=== PATIENT | female | born 1965 | race Caucasian/White ===

== ENCOUNTER 2017-03-22 06:22 | Emergency (ER) | payer OTHER ==
[2017-03-22] MEDS: SODIUM CHLORIDE 0.9% 500 ML IV SCH ×3 (07:00→07:55)
[2017-03-22 07:02] LABS: Basophils % (A) 0 %; CH 31.4; CHCM 33.8; Eosinophils # (A) 0.1 k/uL (0-0.7); Eosinophils % (A) 1 %; HCT 40.2 % (34.0-46.0); HDW 2.07; HGB 13.2 gm/dL (11.4-16.0); Luc # (Auto) 0.27; Luc % (Auto) 2; Lymphocytes # (A) 1.6 k/uL (1.0-4.8); Lymphocytes % (A) 11 %; MCH 30.7 pg (25.0-35.0); MCHC 32.9 g/dL (31.0-37.0); MCV 93.1 fL (80.0-100.0); Mean Platelet Volume 8.7; Monocytes # (A) 0.9 k/uL (0-1.0); Monocytes % (A) 6 %; Neutrophils # (A) 12.2 k/uL (1.3-7.7); Neutrophils % (A) 81 %; RBC 4.32 m/uL (3.80-5.40); RDW 12.9 % (11.5-15.5); WBC 15.1 k/uL (3.8-10.6); WBC (Perox) 15.32
[2017-03-22 07:11] LABS: ALT 29 U/L (9-52); AST 28 U/L (14-36); Alkaline Phosphatase 81 U/L (38-126); Anion Gap 10 mmol/L; Blood Urea Nitrogen 16 mg/dL (7-17); Carbon Dioxide 24 mmol/L (22-30); Chloride 105 mmol/L (98-107); Glucose 109 mg/dL (74-99); Non-African American GFR(MDRD) >60 (>60 ml/min/1.73 sqM); Sodium 139 mmol/L (137-145); Total Bilirubin 0.9 mg/dL (0.2-1.3); Total Protein 6.5 g/dL (6.3-8.2)
[2017-03-22 07:16] LABS: Partial Thromboplastin Time 23.7 sec (22.0-30.0); Prothrombin Time 10.2 sec (9.0-12.0)
[2017-03-22] MEDS ORDERED: ACETAMINOPHEN IV (For NPO) 1,000 MG in EMPTY BAG 1 BAG IVPB STA (07:35)
[2017-03-22] MEDS ORDERED: MORPHINE SULFATE 2 MG/ML SYRINGE IVP ONE (07:37)
[2017-03-22] MEDS ORDERED: ONDANSETRON 4 MG/2 ML VIAL IVP STA (07:37)
--- NOTE | 2017-03-22 07:40 | ED ---
General Adult HPI - General Chief complaint: Neck Pain/Injury Stated complaint: Dehydration Time Seen by Provider: 03/22/17 06:56 Source: patient Mode of arrival: ambulatory Limitations: no limitations - History of Present Illness Initial comments: This is a 51-year-old female who presents here department for a sore throat and difficulty swallowing. She recently had neck surgery performed on March 20. She states that she was intubated at that time. She states that since then she' s been having a lot of pain in her throat and she's been having difficulty with swallowing. She states that every time she swallows she gags. She denies any nausea or vomiting however when she does take her pain medications on an empty stomach and does make her nauseated. She denies any fevers or chills at home however was febrile in triage. She denies any dysuria or hematuria. No cough or shortness of breath. No abdominal pain. She denies any other complaints. - Related Data Previous Rx's Medication Instructions Recorded Butalbit/Acetamin/Caff/Codeine 1 - 2 cap PO Q4HR PRN #15 cap 09/23/15 [Fioricet-Cod 52-362-16-30 Cap] Ondansetron Odt [Zofran Odt] 4 mg PO Q8HR PRN #12 tab 03/22/17 methylPREDNISolone Dose Pack 4 mg PO DIRECTED #21 package 03/22/17 [Medrol Dose Pack] Allergies Allergy/AdvReac Type Severity Reaction Status Date / Time No Known Allergies Allergy Verified 03/22/17 06:31 Review of Systems ROS Statement: Those systems with pertinent positive or pertinent negative responses have been documented in the HPI. ROS Other: All systems not noted in ROS Statement are negative. Past Medical History Additional Past Medical History / Comment(s): Heriditary hemorrhagic telangiectasia History of Any Multi-Drug Resistant Organisms: None Reported Past Surgical History: Section, Orthopedic Surgery, Tonsillectomy Additional Past Surgical History / Comment(s): c-sect x2, man-made disk inserted 03/20/2017 Past Psychological History: No Psychological Hx Reported Smoking Status: Current every day smoker Past Alcohol Use History: None Reported Past Drug Use History: None Reported General Exam - General Exam Comments Initial Comments: Constitutional: Awake alert Appears comfortable Head: Normocephalic atraumatic HEENT: Oropharynx is not erythematous or edematous. Eyes: no conjunctival injection No scleral icterus EOMI Neck: No JVD Supple, there is a cervical collar in place, dressings up. We clean dry and intact Heart: Regular rate rhythm normal S1-S2 no murmurs Lungs: Clear to auscultation bilaterally No wheezing No rales Abdomen: Soft nondistended nontender Extremities: Non edematous DP pulses intact Radial pulses intact Neuro: A&Ox3 No focal neurologic deficits Psych: Appropriate mood and affect Limitations: no limitations Course Vital Signs 03/22/17 03/22/17 03/22/17 06:27 06:56 07:58 Temperature 100.7 F H Pulse Rate 81 73 69 Respiratory 18 18 18 Rate Blood Pressure 113/57 117/61 128/74 O2 Sat by Pulse 95 96 99 Oximetry EKG Findings - EKG Comments: EKG Findings:: EKG is showing normal sinus rhythm with a rate of 79. No abnormal ST segment changes or T-wave inversions. QTC is 412. Other intervals are normal. No ectopy. Medical Decision Making - Medical Decision Making This is a 51-year-old female who presents emergency department for sore throat and difficult swallowing. She had a neck procedure performed a couple of days ago. She was febrile on arrival with a white count of 15.1. X-ray of the soft tissues did see some prevertebral swelling. She did not have any stridor on exam the rest her distress. She was given some Zofran and morphine with great relief in her symptoms. She was also hydrated. I spoke with Dr. Liang who is her neurosurgeon who did not advise getting a computed tomography scan for further evaluation. He felt that the findings were postoperative. He stated that if she does not have any stridor he would not do any further testing. He did state to give her a Medrol Dosepak. She is going to follow-up with him in 3 days. He did advise that if she had any worsening symptoms that she needed to go to [facility] where they can do further evaluation for her. Patient was updated on the plan per Dr. Liang and agrees. Will be discharged home. - Lab Data Result diagrams: 03/22/17 06:45 03/22/17 06:45 Lab Results 07/30/17 07/30/17 07/30/17 Range/Units 06:45 06:45 06:45 WBC 15.1 H (3.8-10.6) k/uL RBC 4.32 (3.80-5.40) m/uL Hgb 13.2 (11.4-16.0) gm/dL Hct 40.2 (34.0-46.0) % MCV 93.1 (80.0-100.0) fL MCH 30.7 (25.0-35.0) pg MCHC 32.9 (31.0-37.0) g/dL RDW 12.9 (11.5-15.5) % Plt Count 226 (150-450) k/uL Neutrophils % 81 % Lymphocytes % 11 % Monocytes % 6 % Eosinophils % 1 % Basophils % 0 % Neutrophils # 12.2 H (1.3-7.7) k/uL Lymphocytes # 1.6 (1.0-4.8) k/uL Monocytes # 0.9 (0-1.0) k/uL Eosinophils # 0.1 (0-0.7) k/uL Basophils # 0.0 (0-0.2) k/uL PT (9.0-12.0) sec INR (<1.2) APTT (22.0-30.0) sec Sodium 139 (137-145) mmol/L Potassium 4.0 (3.5-5.1) mmol/L Chloride 105 (98-107) mmol/L Carbon Dioxide 24 (22-30) mmol/L Anion Gap 10 mmol/L BUN 16 (7-17) mg/dL Creatinine 0.60 (0.52-1.04) mg/dL Est GFR (MDRD) Af Amer >60 (>60 ml/min/1.73 sqM) Est GFR (MDRD) Non-Af >60 (>60 ml/min/1.73 sqM) Glucose 109 H (74-99) mg/dL Plasma Lactic Acid Yevgeniy 0.8 (0.7-2.0) mmol/L Calcium 9.0 (8.4-10.2) mg/dL Total Bilirubin 0.9 (0.2-1.3) mg/dL AST 28 (14-36) U/L ALT 29 (9-52) U/L Alkaline Phosphatase 81 (38-126) U/L Total Protein 6.5 (6.3-8.2) g/dL Albumin 4.1 (3.5-5.0) g/dL Urine Color Urine Appearance (Clear) Urine pH (5.0-8.0) Ur Specific [place] (1.001-1.035) Urine Protein (Negative) Urine Glucose (UA) (Negative) Urine Ketones (Negative) Urine Blood (Negative) Urine Nitrite (Negative) Urine Bilirubin (Negative) Urine Urobilinogen (<2.0) mg/dL Ur Leukocyte Esterase (Negative) Urine RBC (0-5) /hpf Urine WBC (0-5) /hpf Urine Bacteria (None) /hpf Urine Mucus (None) /hpf 03/22/17 03/22/17 Range/Units 06:45 08:25 WBC (3.8-10.6) k/uL RBC (3.80-5.40) m/uL Hgb (11.4-16.0) gm/dL Hct (34.0-46.0) % MCV (80.0-100.0) fL MCH (25.0-35.0) pg MCHC (31.0-37.0) g/dL RDW (11.5-15.5) % Plt Count (150-450) k/uL Neutrophils % % Lymphocytes % % Monocytes % % Eosinophils % % Basophils % % Neutrophils # (1.3-7.7) k/uL Lymphocytes # (1.0-4.8) k/uL Monocytes # (0-1.0) k/uL Eosinophils # (0-0.7) k/uL Basophils # (0-0.2) k/uL PT 10.2 (9.0-12.0) sec INR 1.0 (<1.2) APTT 23.7 (22.0-30.0) sec Sodium (137-145) mmol/L Potassium (3.5-5.1) mmol/L Chloride (98-107) mmol/L Carbon Dioxide (22-30) mmol/L Anion Gap mmol/L BUN (7-17) mg/dL Creatinine (0.52-1.04) mg/dL Est GFR (MDRD) Af Amer (>60 ml/min/1.73 sqM) Est GFR (MDRD) Non-Af (>60 ml/min/1.73 sqM) Glucose (74-99) mg/dL Plasma Lactic Acid Yevgeniy (0.7-2.0) mmol/L Calcium (8.4-10.2) mg/dL Total Bilirubin (0.2-1.3) mg/dL AST (14-36) U/L ALT (9-52) U/L Alkaline Phosphatase (38-126) U/L Total Protein (6.3-8.2) g/dL Albumin (3.5-5.0) g/dL Urine Color Yellow Urine Appearance Clear (Clear) Urine pH 6.5 (5.0-8.0) Ur Specific [place] 1.010 (1.001-1.035) Urine Protein Negative (Negative) Urine Glucose (UA) Negative (Negative) Urine Ketones 1+ H (Negative) Urine Blood Small H (Negative) Urine Nitrite Negative (Negative) Urine Bilirubin Negative (Negative) Urine Urobilinogen <2.0 (<2.0) mg/dL Ur Leukocyte Esterase Negative (Negative) Urine RBC 18 H (0-5) /hpf Urine WBC 1 (0-5) /hpf Urine Bacteria Rare H (None) /hpf Urine Mucus Rare H (None) /hpf Disposition Clinical Impression: Post-op pain Disposition: HOME SELF-CARE Condition: Stable Instructions: Opioid Pain Management (ED) Prescriptions: methylPREDNISolone Dose Pack [Medrol Dose Pack] 4 mg PO DIRECTED #21 package Ondansetron Odt [Zofran Odt] 4 mg PO Q8HR PRN #12 tab PRN Reason: Nausea Referrals: Faye Machado MD [Primary Care Provider] - 1-2 days Parth Liang MD [STAFF PHYSICIAN] - 1-2 days
[2017-03-22 08:30] LABS: Appearance,Urine Clear (Clear); Bacteria,Urine Rare /hpf; Bilirubin,Urine Negative (Negative); Glucose,Urine (UA) Negative (Negative); Ketones,Urine 1+ (Negative); Leukocyte Esterase,Urine Negative (Negative); Mucus,Urine Rare /hpf; Nitrite,Urine Negative (Negative); PH, Urine 6.5 (5.0-8.0); Particle Count 823; Protein,Urine Negative (Negative); RBC,Urine 18 /hpf (0-5); UA Billing (MACRO vs. MICRO) MICRO; Urobilinogen,Urine <2.0 mg/dL (<2.0); WBC,Urine 1 /hpf (0-5)
--- NOTE | 2017-03-22 08:40 | XR ---
EXAMINATION TYPE: XR chest 2V DATE OF EXAM: 03/22/2017 COMPARISON: NONE HISTORY: Fever, hyperventilation, recent surgery TECHNIQUE: Frontal and lateral views of the chest are obtained. FINDINGS: There is no pneumothorax seen. Some minimal blunting of the costophrenic angle on the righ t, platelike atelectatic changes are present. The cardiac silhouette size is within normal limits. D ense nodular density present in the left midlung. There are overlying cardiac leads. The osseous stru ctures are intact. IMPRESSION: There may be basilar atelectasis, small right pleural effusion. Possible granulomatous d isease, comparison with old chest x-rays would be of benefit if available or alternatively consider s hort interval follow-up.
--- NOTE | 2017-03-22 08:42 | XR ---
Soft tissue neck HISTORY: Difficulty swallowing, status post neck surgery 2 views of the neck. Patient is status post disc replacement at C5-6 and C6-7. Prevertebral soft tissues aren't thickened, this mass effect posteriorly on the airway. Epiglottis is normal in profile. Lucency in the soft tis sues compatible with postop state. IMPRESSION: Postop changes. Findings could represent seroma, hematoma, correlate to exclude infection in the prevertebral soft tissues of the neck.
[2017-03-22] MEDS ORDERED: methylPREDNISolone SOD SUCCI 125 MG/2 ML VIAL IV STA (09:20)
[2017-03-22 09:32] VITALS: BP 114/66; PULSE 82; RESP 16; TEMP 99.1
== END 2017-03-22 09:42 | disposition home or self-care (01) ==
LOC: EC 06:22
DX: G89.18 Other acute postprocedural pain (principal); R07.0 Pain in throat; R13.10 Dysphagia, unspecified; F17.200 Nicotine dependence, unspecified, uncomplicated; Z90.89 Acquired absence of other organs
CPT/HCPCS: 36415; 93005; 80053; 83605; 85025; 85610; 85730; 81001; 87040; 87086; 70360; 71020; 99284; 96374; 96375 ×3; 96361 ×2; J2930; J2405; J2270; J0131

== ENCOUNTER → 2017-11-02 | Outpatient (CLI) | payer OTHER ==
--- NOTE | 2017-11-02 14:46 | CT ---
EXAMINATION TYPE: CT abdomen pelvis w con DATE OF EXAM: 11/02/2017 COMPARISON: NONE HISTORY: 52-year-old female hematuria for 2-3 years without other symptoms TECHNIQUE: Contiguous axial scanning of the abdomen and pelvis following administration of 100 ml Omn ipaque 300 IV contrast. Delayed images through the kidneys and coronal/sagittal reconstructions perf ormed. CT DLP: 978 mGycm Automated exposure control for dose reduction was used. FINDINGS: Heart is normal size without pericardial effusion. Lung bases show some strandy atelectasis. No pleur al effusion. Subcentimeter hypodensity right hepatic dome and posterior right liver lobe, too small fractured CT c haracterization, likely cysts. There is a heterogeneous area of enhancement within the central right liver lobe measuring 3.7 cm. Th ere is associated intrahepatic shunting, suspected arterial portal shunting noted. This area fills in with density following the blood pool on delayed kidney images. Couple areas of peripheral blushes a re present in the right liver lobe, right axial image 25 and 27. Portal venous system is patent. No biliary ductal dilatation. Small amount of air extends into the re gion of the distal bile duct and could represent a tiny duodenal diverticulum or air from prior sphin cterotomy. Gallbladder, adrenal glands, spleen with hilar splenule, and pancreas otherwise show no gross abnorma lity. Subcentimeter hypodensity medial mid pole left kidney too small fractured CT characterization, likely cyst. No nephrolithiasis, hydronephrosis, or suspicious renal lesion identified. No mesenteric or retroperitoneal lymphadenopathy. [id number] stool right hemicolon. Normal appe ndix. Occasional left hemicolonic diverticulosis. Bladder shows moderate circumferential wall thickening. Nonspecific tiny calcification along the ante rior bladder wall. Uterus and ovaries are visualized. No abnormal fluid collection in the pelvis or p elvic lymphadenopathy seen. Bones: Degenerative changes L5-S1. IMPRESSION: 1. Masslike area of heterogeneous enhancement that fills in and follows the blood pool on delayed brionna ges. This measures 3.7 cm in the right liver lobe. As a couple areas of vascular shunting are present , this area is also suspected to relate to intrahepatic shunting, suspect arterial portal shunting. R ecommend 3-6 month follow-up CT to ensure stability. 2. Moderate circumferential bladder wall thickening. Correlate for cystitis or neurogenic changes. 3. Occasional left-sided colonic diverticulosis.
== END | disposition home or self-care (01) ==
LOC: RADCTMAIN 11:44
PROVIDERS: ATTEND Family Medicine
DX: K57.30 Diverticulosis of large intestine without perforation or abscess without bleeding (principal); N32.89 Other specified disorders of bladder; K76.89 Other specified diseases of liver; Z95.828 Presence of other vascular implants and grafts
CPT/HCPCS: 74177; Q9967

== ENCOUNTER → 2017-12-02 | Outpatient (CLI) | payer OTHER ==
--- NOTE | 2017-12-02 23:19 | CT ---
EXAMINATION TYPE: CT mastoid wo con DATE OF EXAM: 12/02/2017 COMPARISON: Correlation brain 09/23/2015 HISTORY: 52-year-old female with right sided ear pain TECHNIQUE: Contiguous axial scanning of the temporal bones without IV contrast. Coronal reconstructio ns performed. CT DLP: 142.7 mGycm Automated exposure control for dose reduction was used. FINDINGS: There is no abnormality of the visualized intracranial structures by thin section CT. The external auditory canals are patent bilaterally. There is very minimal asymmetric thickening of t he right tympanic membrane, for example, reference axial images 41 and 42. The middle ear cavities and mastoid air cells are well pneumatized. There is no abnormality of middle ear ossicles. The round and oval windows are normal. There is no abnormality of the bony labyrinths. The vestibular and cochlear aqueducts are well visualized. The facial nerve canal is normal bilaterally. The internal auditory canal and meati are symmetrical bilaterally. There is no evidence of fractures. There is leftward nasal septal deviation with mild mucosal thickening throughout the ethmoid air cell s. Reformatted images confirm above findings. IMPRESSION: 1. SLIGHT ASYMMETRIC THICKENING OF THE RIGHT TYMPANIC MEMBRANE COULD BE SECONDARY TO INFLAMMATION OR COULD REPRESENT SCARRING RELATING TO PRIOR INJURY OR INFECTION. CLINICALLY CORRELATE. 2. OTHERWISE, UNREMARKABLE TEMPORAL BONE CT. 3. LEFTWARD NASAL SEPTAL DEVIATION AND MILD CHRONIC ETHMOID SINUS DISEASE.
== END | disposition home or self-care (01) ==
LOC: RADCTMAIN 18:19
PROVIDERS: ATTEND Otolaryngology
DX: H69.91 Unspecified Eustachian tube disorder, right ear (principal); H91.93 Unspecified hearing loss, bilateral
CPT/HCPCS: 70486

== ENCOUNTER 2018-08-15 12:53 | Emergency (ER) | payer OTHER ==
[2018-08-15 13:04] VITALS: TEMP 97.9
[2018-08-15] MEDS ORDERED: MORPHINE SULFATE 4 MG/ML SYRINGE IM STA (13:35)
[2018-08-15] MEDS ORDERED: LIDOCAINE 5% PATCH TOPICAL STA (13:35)
[2018-08-15] MEDS ORDERED: DIAZEPAM 5 MG TAB PO STA (13:35)
--- NOTE | 2018-08-15 13:38 | ED ---
General Adult HPI - General Chief complaint: Back Pain/Injury Stated complaint: Back Pain Time Seen by Provider: 08/15/18 13:20 Source: patient, RN notes reviewed Mode of arrival: ambulatory Limitations: no limitations - History of Present Illness Initial comments: Patient's a 53-year-old female presenting to the emergency room today with a chief complaint of increased lower back pain. She states that over the past 5 days she's had pain to the lower back both left and right. Patient states pain is worse with any movements of turning, bending. Patient denies any specific injury. 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 Patient also states that she rolled her right ankle a week ago and is unsure if this pain in her back could be due to compensation. Patient states she's tried some [place], ibuprofen at home with little relief the symptoms. She does admit that she has some radicular pain going down on the outside of both left and right side to approximately the knee area. Patient denies any bowel or bladder incontinence retention. She denies any saddle anesthesia. Patient denies any other complaints or symptoms. Patient denies any recent fever, chills, shortness of breath, chest pain, abdominal pain, nausea or vomiting, headaches or visual changes, or any other complaints. - Related Data Previous Rx's Medication Instructions Recorded Butalbit/Acetamin/Caff/Codeine 1 - 2 cap PO Q4HR PRN #15 cap 09/23/15 [Fioricet-Cod 18-363-09-30 Cap] Ondansetron Odt [Zofran Odt] 4 mg PO Q8HR PRN #12 tab 03/22/17 methylPREDNISolone Dose Pack 4 mg PO DIRECTED #21 package 03/22/17 [Medrol Dose Pack] Cyclobenzaprine [Flexeril] 10 mg PO TID #20 tab 08/15/18 Dexamethasone 0.75 mg PO DIRECTED #12 tablet 08/15/18 Ibuprofen [Motrin] 800 mg PO Q6HR #30 tab 08/15/18 Lidocaine [Lidoderm 5% Patch] 1 patch TRANSDERM DAILY #7 patch 08/15/18 Allergies Allergy/AdvReac Type Severity Reaction Status Date / Time No Known Allergies Allergy Verified 03/22/17 06:31 Review of Systems ROS Statement: Those systems with pertinent positive or pertinent negative responses have been documented in the HPI. ROS Other: All systems not noted in ROS Statement are negative. 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 . Neck: The neck is supple, there is no tenderness or JVD. Cardiovascular: There is a regular rate and rhythm. No murmur, rub or gallop is appreciated. Respiratory: Lungs are clear to auscultation, respirations are non-labored, breath sounds are equal. No wheezes, stridor, rales, or rhonchi. Musculoskeletal: Limited range of motion due to pain with movements of turning and bending. Patient is tender to palpation at L4 to L5 area. Does have paravertebral tenderness both left and right sides in this area. Strength 5/5. Sensation intact. Pulses equal bilaterally 2+. Neurological: A&O x 3. CN II-XII intact, There are no obvious motor or sensory deficits. Coordination appears grossly intact. Speech is normal. Skin: Skin is warm and dry and no rashes or lesions are noted. Psychiatric: Cooperative, appropriate mood & affect, normal judgment. Limitations: no limitations Course Vital Signs 08/15/18 08/15/18 13:00 14:44 Temperature 97.9 F Pulse Rate 85 71 Respiratory 18 16 Rate Blood Pressure 117/74 114/57 O2 Sat by Pulse 99 97 Oximetry Medical Decision Making - Medical Decision Making X-ray reviewed is negative for any acute abdomen. Results were discussed with the patient per patient was given a Lidoderm patch, morphine shot, Valium here in the emergency room she does admit to improvement. She states she has better range of motion with turning and twisting at this time. Patient will be continued on anti-inflammatories, muscle relaxer, Lidoderm patch, steroid Dosepak for her symptoms. Advised following up with family physician over the next 2 days returning if symptoms increase worsen. Patient states understanding and is in agreement. Disposition Clinical Impression: Acute low back pain Disposition: HOME SELF-CARE Condition: Good Instructions: Acute Low Back Pain (ED) Additional Instructions: Please use medication as discussed. Please follow-up with family doctor in the next 2 days. Please return to emergency room if the symptoms increase or worsen or for any other concerns. Prescriptions: Cyclobenzaprine [Flexeril] 10 mg PO TID #20 tab Dexamethasone 0.75 mg PO DIRECTED #12 tablet Ibuprofen [Motrin] 800 mg PO Q6HR #30 tab Lidocaine [Lidoderm 5% Patch] 1 patch TRANSDERM DAILY #7 patch Is patient prescribed a controlled substance at d/c from ED?: No Referrals: Faye Machado MD [Primary Care Provider] - 1-2 days Time of Disposition: 14:59
--- NOTE | 2018-08-15 14:30 | XR ---
EXAMINATION TYPE: XR lumbar spine 2 or 3V DATE OF EXAM: 08/15/2018 COMPARISON: NONE HISTORY: Back pain TECHNIQUE: 3 views FINDINGS: Lumbar vertebra have normal alignment. There is narrowing of L4-5 and L5-S1 disc spaces. Po sterior elements are intact. There is no compression fracture. Sacroiliac joints appear intact. IMPRESSION: Spondylosis lower lumbar spine. No fracture seen.
[2018-08-15 14:44] VITALS: BP 114/57; PULSE 71; RESP 16
== END 2018-08-15 15:20 | disposition home or self-care (01) ==
LOC: EC 12:53
DX: M54.5 Low back pain (principal); F17.200 Nicotine dependence, unspecified, uncomplicated
CPT/HCPCS: 72100; 99283; 96372; J2270

== ENCOUNTER → 2018-11-09 | Outpatient (CLI) | payer OTHER ==
--- NOTE | 2018-11-10 13:24 | MM ---
Reason for exam: screening (asymptomatic). Last mammogram was performed 1 year and 3 months ago. History: Patient is postmenopausal and had first child at age 32. Family history of breast cancer in paternal grandmother at age 40. Taking other hormone. Physical Findings: A clinical breast exam by your physician is recommended on an annual basis and results should be correlated with mammographic findings. MG Screening Mammo w CAD Bilateral CC and MLO view(s) were taken. Prior study comparison: August 18, 2017, bilateral MG screening mammo w CAD. July 25, 2016, bilateral MG screening mammo w CAD. The breast tissue is heterogeneously dense. This may lower the sensitivity of mammography. There is no discrete abnormality. No significant changes when compared with prior studies. ASSESSMENT: Negative, BI-RAD 1 RECOMMENDATION: Routine screening mammogram of both breasts in 1 year.
== END | disposition home or self-care (01) ==
LOC: RADMAMWWP 16:21
PROVIDERS: ATTEND Family Medicine
DX: Z12.31 Encounter for screening mammogram for malignant neoplasm of breast (principal)
CPT/HCPCS: 77067

== ENCOUNTER → 2019-02-17 | Outpatient (CLI) | payer OTHER ==
--- NOTE | 2019-02-17 10:44 | XR ---
EXAMINATION TYPE: XR thoracic spine 2V DATE OF EXAM: 02/17/2019 CLINICAL HISTORY: Upper back pain that is chronic. TECHNIQUE: Frontal, lateral, and swimmer's view of thoracic spine are obtained. COMPARISON: None. FINDINGS: Thoracic spine show satisfactory alignment without evidence of acute fracture or dislocatio n. Vertebral body heights and disc space heights are preserved. Very small multilevel anterior osteo phytes are seen. Visualized ribs are unremarkable. Cervical intervertebral disc spacers are inciden tally noted. IMPRESSION: No acute fracture or malalignment is seen in the thoracic spine. Mild multilevel degener ative changes of the thoracic spine.
--- NOTE | 2019-02-17 10:48 | XR ---
EXAMINATION TYPE: XR shoulder complete BILAT DATE OF EXAM: 02/17/2019 CLINICAL HISTORY: Bilateral shoulder pain that is chronic TECHNIQUE: Three views of the bilateral shoulders were obtained. COMPARISON: Chest x-ray dated 03/22/2017 FINDINGS: There is no acute fracture/dislocation evident in either shoulder. Bilateral moderate acro mioclavicular arthropathy is seen with small marginal osteophytes and joint space narrowing, right sl ightly greater than left. Mild glenohumeral arthropathy is present as no chondral cysts are seen near the right humeral head and there is very minimal joint space narrowing bilaterally. Dense probable g ranuloma or pulmonary vessel en face is seen within the left lung measuring 7 mm. This is unchanged f rom the prior of 03/22/2017 IMPRESSION: There is no acute fracture or dislocation in either shoulder. Moderate bilateral acromio clavicular arthropathy and mild bilateral glenohumeral arthropathy.
== END | disposition home or self-care (01) ==
LOC: RADXRMAIN 10:07
PROVIDERS: ATTEND Family Medicine
DX: M47.816 Spondylosis without myelopathy or radiculopathy, lumbar region (principal); M19.011 Primary osteoarthritis, right shoulder; M19.012 Primary osteoarthritis, left shoulder
CPT/HCPCS: 72070

== ENCOUNTER → 2020-05-04 | Outpatient (CLI) | payer BC ==
--- NOTE | 2020-05-07 09:59 | MM ---
Reason for exam: screening (asymptomatic). Last mammogram was performed 1 year and 6 months ago. History: Patient is postmenopausal and had first child at age 32. Family history of breast cancer in paternal aunt and breast cancer in paternal grandmother at age 40. Taking other hormone. Physical Findings: A clinical breast exam by your physician is recommended on an annual basis and results should be correlated with mammographic findings. MG Screening Mammo w CAD Bilateral CC and MLO view(s) were taken. Prior study comparison: November 09, 2018, bilateral MG screening mammo w CAD. August 18, 2017, bilateral MG screening mammo w CAD. The breast tissue is heterogeneously dense. This may lower the sensitivity of mammography. There is no discrete abnormality. No significant changes when compared with prior studies. ASSESSMENT: Negative, BI-RAD 1 RECOMMENDATION: Routine screening mammogram of both breasts in 1 year.
== END | disposition home or self-care (01) ==
LOC: RADMAMWWP 15:51
PROVIDERS: ATTEND Family Medicine
DX: Z12.31 Encounter for screening mammogram for malignant neoplasm of breast (principal)
CPT/HCPCS: 77067

== ENCOUNTER → 2021-05-10 | Outpatient (CLI) | payer BC ==
--- NOTE | 2021-05-12 19:46 | CTL ---
EXAMINATION TYPE: CT Low Dose Lung DATE OF EXAM ORDERED: 05/10/2021 HISTORY: 55-year-old female Personal hx tobacco use, pt c/o SOB. Lung cancer screening CT DLP: [address] CTDI: 1.02 mGy Automated exposure control for dose reduction was used. SCREENING VISIT: Baseline screening COMPARISON: None TECHNIQUE: Low dose computed tomography scan was performed through the chest with coronal and sagitta l reconstructions. Additional coronal MIP reconstruction was generated. CT DIAGNOSTIC QUALITY: Satisfactory FINDINGS: Heart normal size without pericardial effusion. Aorta normal caliber with conventional arch vessel branching anatomy. Allowing for noncontrast technique, no thoracic lymphadenopathy is identified. Mild biapical pleural-parenchymal scarring. Mild centrilobular emphysema. Mild diffuse bronchial wal l thickening. Minimal strandy atelectasis at the lung bases. No consolidation or pleural effusion. 3 mm posteromedial right upper lobe pulmonary nodule, axial image 55. 3 mm subpleural pulmonary nodule lateral right midlung, axial image 165. Benign 1 cm calcified granuloma anterolateral left mid lung. Adjacent 4 mm pulmonary nodule, axial and 144. Visualized upper abdomen shows no gross abnormality by noncontrast low-dose technique. Bones: No osseous destructive process. IMPRESSION: 1. Lung grade 2, benign. A benign 1 cm calcified granuloma as well as a few scattered 4 mm and smalle r pulmonary nodules on baseline screening. 2. COPD with mild emphysema. Recommend smoking cessation. CT LUNG RAD AND CT CHEST RECOMMENDATION: Lung-Rad 2 Benign Appearance or Behavior: Continue annual sc reening with LDCT in 12 months.
--- NOTE | 2021-05-14 08:13 | MM ---
Reason for exam: screening (asymptomatic). Last mammogram was performed 1 year ago. History: Patient is postmenopausal and had first child at age 32. Family history of breast cancer in paternal aunt and breast cancer in paternal grandmother at age 40. Taking other hormone. Physical Findings: A clinical breast exam by your physician is recommended on an annual basis and results should be correlated with mammographic findings. MG Screening Mammo w CAD Bilateral CC and MLO view(s) were taken. Prior study comparison: May 04, 2020, bilateral MG screening mammo w CAD. November 09, 2018, bilateral MG screening mammo w CAD. August 18, 2017, bilateral MG screening mammo w CAD. The breast tissue is heterogeneously dense. This may lower the sensitivity of mammography. Medial central left CC view asymmetric density is more defined. No clear MLO correlate. ASSESSMENT: Incomplete: need additional imaging evaluation, BI-RAD 0 RECOMMENDATION: Special view mammogram of the left breast. (3D) If lesion persists on supplemental views, image directed ultrasound is recommended. [facility] will attempt to contact patient to return for supplemental views and ultrasound if indicated.
== END | disposition home or self-care (01) ==
LOC: RADMAMWWP 16:14
PROVIDERS: ATTEND Family Medicine
DX: Z12.31 Encounter for screening mammogram for malignant neoplasm of breast (principal); Z12.2 Encounter for screening for malignant neoplasm of respiratory organs; J84.10 Pulmonary fibrosis, unspecified; R91.8 Other nonspecific abnormal finding of lung field; J43.9 Emphysema, unspecified; Z87.891 Personal history of nicotine dependence; Z78.0 Asymptomatic menopausal state; Z80.3 Family history of malignant neoplasm of breast; Z79.899 Other long term (current) drug therapy
CPT/HCPCS: 71271; 77067

== ENCOUNTER → 2021-05-23 | Outpatient (CLI) | payer BC ==
--- NOTE | 2021-05-29 09:42 | MM ---
Reason for exam: additional evaluation requested from abnormal screening. Last mammogram was performed less than 1 month ago. History: Patient is postmenopausal and had first child at age 32. Family history of breast cancer in paternal aunt and breast cancer in paternal grandmother at age 40. Took hormonal contraceptives for 12 years beginning at age 18. Taking other hormone. Physical Findings: Nurse did not find any significant physical abnormalities on exam. MG 3D Work Up W/Cad LT Spot compression CC, LM, CCRM, and CCRL view(s) were taken of the left breast. Prior study comparison: May 10, 2021, bilateral MG screening mammo w CAD. May 04, 2020, bilateral MG screening mammo w CAD. There are scattered fibroglandular densities. The central asymmetric density disperses on additional views. No significant new findings when compared with previous films. These results were verbally communicated with the patient and result sheet given to the patient on 05/23/21. ASSESSMENT: Negative, BI-RAD 1 RECOMMENDATION: Return to routine screening mammogram schedule for both breasts.
== END | disposition home or self-care (01) ==
LOC: RADMAMWWP 10:03
PROVIDERS: ATTEND Family Medicine
DX: N64.89 Other specified disorders of breast (principal); Z80.3 Family history of malignant neoplasm of breast; Z78.0 Asymptomatic menopausal state
CPT/HCPCS: 77061; 77065

== ENCOUNTER → 2021-08-20 | Day surgery (SDC) | payer BC ==
[2021-08-19 11:26] VITALS: BMI 19.8
[~2021-08-20] MED LIST: LACTATED RINGERS 1,000 ML IV SCH; LIDOCAINE 1% (10MG/ML) FOR IV START INTRADERMA PRN; MIDAZOLAM 2 MG/2 ML VIAL ONE; PROPOFOL 10 MG/ML 20 ML VIAL IV ONE; fentaNYL (PF) 50 MCG/ML 2 ML AMP ONE
[2021-08-20 06:49] VITALS: TEMP 98.2
--- NOTE | 2021-08-20 07:40 | P.PCN ---
Date of Procedure: 08/20/21 Procedure(s) Performed: BRIEF HISTORY: Patient is a 56-year-old pleasant white female scheduled for an elective colonoscopy as a part of screening for colorectal neoplasia. PROCEDURE PERFORMED: Colonoscopy with snare polypectomy. PREOPERATIVE DIAGNOSIS: Screening for colon cancer. IV sedation per Anesthesia. PROCEDURE: After informed consent was obtained, the patient, was brought into the endoscopy unit. IV sedation was administered by Anesthesia under continuous monitoring. Digital rectal examination was normal. Initially the Olympus CF-160 flexible video colonoscope was then inserted in the rectum, gradually advanced into the cecum without any difficulty. Careful examination was performed as the scope was gradually being withdrawn. Ileocecal valve and the appendiceal orifice were visualized and appeared normal. Prep was excellent. Mucosa of the cecum, ascending colon, transverse colon, descending colon, appeared normal. There was a 7 mm sigmoid colon polyp status post polypectomy. In the rectum there was a 5 mm polyp removed by snare polypectomy. Scattered sigmoid diverticula seen. Rest of the sigmoid colon, and rectum appeared normal. Retroflexion was performed in the rectum and no lesions were seen. The patient tolerated the procedure well. IMPRESSION: 7 mm sigmoid; polyp status post polypectomy 5 mm rectal polyp status post snare polypectomy Scattered sigmoid diverticulosis RECOMMENDATIONS: Findings of this examination were discussed with the patient as well as her family. She was advised to follow with the biopsy results. If the biopsy results adenoma she can have a repeat colonoscopy in 5 years..
[2021-08-20 07:46] VITALS: RESP 16
[2021-08-20 07:58] VITALS: BP 124/82; PULSE 70
== END ==
LOC: ORWHC2ENDO 06:29
PROVIDERS: ATTEND Internal Medicine Gastroenterology
DX: Z12.11 Encounter for screening for malignant neoplasm of colon (principal); K57.30 Diverticulosis of large intestine without perforation or abscess without bleeding
CPT/HCPCS: 45385; J2250; J3010; J2704; 88305

== ENCOUNTER → 2021-11-13 | Outpatient (CLI) | payer BC ==
--- NOTE | 2021-11-14 06:01 | MR ---
EXAMINATION TYPE: MR brain wo/w con DATE OF EXAM: 11/13/2021 COMPARISON: 07/07/2012 HISTORY: Prior on synapse, history of hemorrhagic telangiectasia, HAs CONTRAST: Standard multiplanar, multisequence MRI departmental protocol images were obtained without contrast a nd with 5ml mL intravenous Gadavist gadolinium contrast. Ventricles have normal size. There is no mass effect or midline shift. There is no sign of intracrani al hemorrhage. Diffusion images show no sign of an acute infarct. Brainstem is intact. Corpus callosu m is intact. Sella turcica appears normal. The delacruz and white matter structures have fairly normal si gnal pattern. There is no evidence of cerebral edema. Contrast images show no pathologic enhancement. There is normal enhancement of the venous sinuses. IMPRESSION: Negative MR scan of the brain. No adverse change compared to old exam.
== END | disposition home or self-care (01) ==
LOC: RADMRIMAIN 08:36
PROVIDERS: ATTEND Family Medicine
DX: G43.909 Migraine, unspecified, not intractable, without status migrainosus (principal)
CPT/HCPCS: 70553; A9585

== ENCOUNTER → 2023-07-14 | Outpatient (CLI) | payer BC ==
--- NOTE | 2023-07-17 08:52 | CTL ---
EXAMINATION TYPE: CT Low Dose Lung DATE OF EXAM: 07/14/2023 6:10 PM CLINICAL INDICATION:Female, 57 years old with history of Z12.2 ENCNTR SCREEN FOR MALIGNANT NEOPLAS,F 17.210; Tobacco dependence. Current smoker. 1 pack a day x 39 years. , history of tobacco use. COMPARISON: 06/02/2022. TECHNIQUE: Multiple axial non-contrast scans were obtained from approximately the lung apices through the upper abdomen. Coronal and sagittal reformatted images were obtained. Low dose technique was uti lized. CT DLP: 62.7 mGycm, Automated exposure control for dose reduction was used. CT Contrast: Contrast used: None Oral contrast used: None FINDINGS: ======== Lack of intravenous contrast and low dose technique limits the evaluation of the vascular and soft ti ssue structures. LUNGS: No evidence of pulmonary fibrosis. No evidence of focal consolidation, pneumothorax or pleural effusion. Mild centrilobular and paraseptal emphysema changes throughout the lungs. Few scattered pe ripheral reticular opacities are present. Nodules: RUL: None. RML: None. RLL: None. ANUSHA: Calcified granuloma present. LLL: None. AIRWAY: Patent and unremarkable. HEART: Size within normal limits. MEDIASTINUM: No gross evidence of adenopathy. Partially calcified lymph nodes in the left pulmonary h ilum. VASCULATURE: No aortic aneurysm. MUSCULOSKELETAL: No acute osseous abnormalities . SOFT TISSUES/LYMPH NODES: Unremarkable. LOWER NECK: No significant findings. UPPER ABDOMEN: No significant findings. IMPRESSION: 1. No clinically significant pulmonary nodules. 2. Sequela of granulomatous disease. 3. Mild to moderate emphysema changes. CT LUNG RAD AND CT CHEST RECOMMENDATION: Lung-Rad 2 Benign Appearance or Behavior: Continue annual sc reening with LDCT in 12 months. S Modifier (other clinically significant findings): S Recommend smoking cessation (if current smoker), or continuation of smoking cessation (if prior smoke r). Annual screening for lung cancer with low-dose computed tomography is recommended in adults ages 55 to 77 years who have a 30 pack-year smoking history and currently smoke or have quit within the pa st 15 years. Screening should be discontinued once a person has not smoked for 15 years or develops a health problem that substantially limits life expectancy or the ability or willingness to have curat yoly lung surgery. Lung rads 2021 [email or web address]
== END | disposition home or self-care (01) ==
LOC: RADCTMAIN 17:51
PROVIDERS: ATTEND Family Medicine
DX: Z12.2 Encounter for screening for malignant neoplasm of respiratory organs (principal); J43.2 Centrilobular emphysema; F17.210 Nicotine dependence, cigarettes, uncomplicated
CPT/HCPCS: 71271

== ENCOUNTER → 2023-08-11 | Outpatient (CLI) | payer BC ==
--- NOTE | 2023-08-11 17:44 | BD ---
EXAMINATION TYPE: Axial Bone Density DATE OF EXAM: 08/11/2023 CLINICAL HISTORY: 58 years old Female. ICD-10 CODE: M85.9 DISORDER OF BONE DENISTY Height: 68 Weight: 132.4 FRAX RISK QUESTIONS: Alcohol (3 or more units per day): no Family History (Parent hip fracture): no Glucocorticoids (More than 3mos): no (Ex: prednisone, prednisolone, methylprednisolone, dexamethasone, and hydrocortisone). History of Fracture in Adulthood: yes Secondary Osteoporosis: 1. Type 1 Diabetes: no 2. Hyperthyroidism: no 3. Menopause before 45: yes 4. Malnutrition: no 5. Chronic liver disease: yes Rheumatoid Arthritis: no Current Tobacco Use: yes RISK FACTORS HISTORY OF: Surgery to Spine/Hip(right/left)/Wrist (right/left): no Additional History: EXAM MEASUREMENTS: Bone mineral densitometry was performed using the [employer] System. Bone mineral density as measured about the Lumbar spine is: ----- L1-L4(G/cm2): 1.067 T Score Values are as follows: ----- L1: -1.9 ----- L2: -1.7 ----- L3: -0.4 ----- L4: -0.2 ----- L1-L4: -0.9 Z Score Values are as follows: ----- L1: -0.7 ----- L2: -0.5 ----- L3: 0.8 ----- L4: 1.0 ----- L1-L4: 0.3 Bone mineral density has: decreased -3.0 % since study of: 08.19.2017 Bone mineral density about the R hip (g/cm2): 0.907 Bone mineral density about the L hip (g/cm2): 0.975 T Score values are as follows: -----R Neck: -1.2 -----L Neck: -0.9 -----R Total: -0.8 -----L Total: -0.3 Z Score values are as follows: -----R Neck: 0.0 -----L Neck: 0.4 -----R Total: 0.1 -----L Total: 0.7 Bone mineral density has: decreased -4.0 % since study of: 08.19.2017 FRAX%s: The graph provided illustrates a 10.6% chance for a major osteoporotic fx and a 1.3% chance f or the hips probability for fx in 10 years time. IMPRESSION: Osteopenia (T Score between -2.5 and -1). There is slightly increased risk of fracture and the patient may be considered for treatment. Re-Screen 2-5 years. NOTE: T-SCORE=SD OF THE YOUNG ADULT MEAN.
--- NOTE | 2023-08-13 22:28 | MM ---
Reason for Exam: Screening (asymptomatic). Last mammogram was performed 1 year(s) and 2 month(s) ago. Patient History: Menarche at age 13. First Full-Term at age 32. Late child-bearing (after 30). Postmenopausal. Hormonal Contraceptives for 12 years from age 18 until age 30. Paternal grandmother had breast cancer, age 40. Paternal aunt had breast cancer. Risk Values: Bhavani 5 year model risk: 1.8%. NCI Lifetime model risk: 10.5%. Prior Study Comparison: 05/10/2021 Bilateral Screening Mammogram, [facility]. 05/23/2021 Left Diagnostic Mammogram, [facility]. 06/02/2022 Bilateral MG 3D screening mammo w/cad, [facility]. Tissue Density: There are scattered fibroglandular densities. Findings: Analyzed By CAD. There is no suspicious group of microcalcifications or new suspicious mass in either breast. Overall Assessment: Negative, BI-RAD 1 Management: Screening Mammogram of both breasts in 1 year. . Patient should continue monthly self-breast exams. A clinical breast exam by your physician is recommended on an annual basis. This exam should not preclude additional follow-up of suspicious palpable abnormalities. Note on Bhavani scores and lifetime risk: 1. A Bhavani score greater than 3% is considered moderate risk. If this is the case, consider specialist referral to assess eligibility for a risk reducing agent. 2. If overall lifetime risk for the development of breast cancer is 20% or higher, the patient may qualify for future screening with alternating mammogram and breast MRI. Electronically signed and approved by: Yissel Moses M.D. Radiologist
== END | disposition home or self-care (01) ==
LOC: RADMAMWWP 15:49
PROVIDERS: ATTEND Family Medicine
DX: Z12.31 Encounter for screening mammogram for malignant neoplasm of breast (principal); M85.89 Other specified disorders of bone density and structure, multiple sites; Z78.0 Asymptomatic menopausal state; Z80.3 Family history of malignant neoplasm of breast
CPT/HCPCS: 77063; 77067; 77080

== ENCOUNTER → 2023-09-18 | Outpatient (CLI) | payer BC ==
--- NOTE | 2023-09-18 18:33 | CA ---
Stress Echo Report Kenya Woody Age: 58 Gender: F : 1965 Exam Date: 09/18/2023 09:52 Exam Location: [facility] Ht (in): 68 Wt (lb): 135 Ordering Physician: Faye Bauer MD Referring Physician: FAYE BAUER,, Log Chipper Operator: EUGENE Technologist Procedure CPT: Indication: R07.9 CHEST PAIN ICD-9 Codes: Rhythm: Patient History: Abnormal ekg and palpitations Cardiac Medications: Medications in past 24 hours: Contrast: Stress Results Protocol: Juan José Total dose(mL): Exercise Duration (min:sec): [address] Depression (mm): Angina Score: Bardales Score: METS: 11.7 Resting HR: 66 Resting BP: 105 / 52 Peak HR: 140 Peak BP: 164 / 69 Max Predicted HR: 162 86 % Max Predicted HR Target HR: 138 Double Product: [id number] Stress Summary: BP Response: Reason for Termination: Reached target heart rate or work-load Cardiac Symptoms: No Symptoms ECG Analysis Resting ECG: Stress ECG: Arrhythmia: Echo Analysis Resting Echo: Peak Echo Analysis: MEASUREMENTS (Male/Female) Normal Values CONCLUSIONS Excellent exercise tolerance Normal EKG and echocardiogram in response to exercise Dr. Jerzy Dickey MD (Electronically Signed) Final Date: 18 September 2023 18:32
== END | disposition home or self-care (01) ==
LOC: RADNMMAIN 08:57
PROVIDERS: ATTEND Family Medicine
DX: R07.9 Chest pain, unspecified (principal); R00.2 Palpitations
CPT/HCPCS: 93351

== ENCOUNTER 2023-12-04 13:31 | Observation (INO) | payer BC ==
--- NOTE | 2023-12-04 13:46 | ED ---
General Adult HPI - General Chief complaint: Chest Pain Stated complaint: chest pain, SOB/JAMMIE Time Seen by Provider: 12/04/23 13:36 Source: patient, RN notes reviewed Mode of arrival: ambulatory Limitations: no limitations - History of Present Illness Initial comments: Patient is a 58-year-old female present to the emergency department with concerns for chest discomfort. Onset of symptoms was yesterday. Discomfort is described as tightness and has been persistent. Patient has associated dyspnea. Patient has associated nausea and did vomit in the emergency department. No calf pain or swelling. - Related Data Home Medications Medication Instructions Recorded Confirmed No Known Home Medications 08/31/21 08/31/21 Allergies Allergy/AdvReac Type Severity Reaction Status Date / Time No Known Allergies Allergy Verified 12/04/23 13:35 Review of Systems ROS Statement: Those systems with pertinent positive or pertinent negative responses have been documented in the HPI. ROS Other: All systems not noted in ROS Statement are negative. Constitutional: Denies: fever Eyes: Denies: eye pain ENT: Denies: ear pain Respiratory: Reports: dyspnea Cardiovascular: Reports: as per HPI, chest pain Gastrointestinal: Reports: nausea, vomiting. Denies: abdominal pain Musculoskeletal: Denies: back pain Past Medical History Additional Past Medical History / Comment(s): Hereditary hemorrhagic telangi ectasia, migraines. per pt has mass in liver History of Any Multi-Drug Resistant Organisms: None Reported Past Surgical History: Section, Orthopedic Surgery, Tonsillectomy Additional Past Surgical History / Comment(s): c-sect x2, man-made disk C-7 inserted 03/20/2017, hemorrhoid surgery, D&C Past Anesthesia/Blood Transfusion Reactions: No Reported Reaction Past Psychological History: No Psychological Hx Reported Smoking Status: Current every day smoker Past Alcohol Use History: None Reported Past Drug Use History: None Reported General Exam Limitations: no limitations General appearance: alert, in no apparent distress Head exam: Present: normocephalic Eye exam: Present: normal appearance Neck exam: Present: normal inspection Respiratory exam: Present: normal lung sounds bilaterally Cardiovascular Exam: Present: regular rate, normal rhythm Expanded Peripheral pulses: 2+: Radial (R), Radial (L), Dorsalis Pedis (R), Dorsalis Pedis (L) GI/Abdominal exam: Present: soft. Absent: tenderness Extremities exam: Present: normal inspection. Absent: pedal edema, calf tenderness Neurological exam: Present: alert Psychiatric exam: Present: normal affect, normal mood Skin exam: Present: erythema (Right great toe with mild erythema distally) Course Vital Signs 12/04/23 12/04/23 13:33 14:45 Temperature 98.5 F Pulse Rate 90 73 Respiratory 28 H 18 Rate Blood Pressure 131/78 123/66 O2 Sat by Pulse 99 96 Oximetry EKG Findings - EKG Results: EKG: interpreted by ERMD (L axis), sinus rhythm, normal QRS, normal ST/T Medical Decision Making - Medical Decision Making Was pt. sent in by a medical professional or institution (, PA, WATER SANDER, urgent care, hospital, or longterm...) When possible be specific @ -No Did you speak to anyone other than the patient for history (EMS, parent, family, police, friend...)? What history was obtained from this source @ -No Did you review nursing and triage notes (agree or disagree)? Why? @ -I reviewed and agree with nursing and triage notes Were old charts reviewed (outside hosp., previous admission, EMS record, old EKG, old radiological studies, urgent care reports/EKG's, longterm records)? Report findings @ -No old charts were reviewed Differential Diagnosis (chest pain, altered mental status, abdominal pain women, abdominal pain men, vaginal bleeding, weakness, fever, dyspnea, syncope, heada shreya, dizziness, GI bleed, back pain, seizure, CVA, palpatations, mental health, musculoskeletal)? @ -Differential Chest Pain: Stable Angina, Unstable Angina, STEMI, NSTEMI Aortic Dissection, Pneumothorax, Musculoskeletal, Esophageal Spasm GERD, Cholecystitis, Pancreatitis, Zoster, this is not meant to be an all-inclusive list. EKG interpreted by me (3pts min.). @ -As above X-rays interpreted by me (1pt min.). @ -Chest x-ray shows no acute process CT interpreted by me (1pt min.). @ -None done U/S interpreted by me (1pt. min.). @ -None done What testing was considered but not performed or refused? (CT, X-rays, U/S, labs)? Why? @ -None What meds were considered but not given or refused? Why? @ -None Did you discuss the management of the patient with other professionals (professionals i.e. , PA, WATER SANDER, lab, RT, psych nurse, social work nurse, quill machine tender, teacher, development officer, ed case manager)? Give summary @ -Case was discussed with Dr. Larose who will admit covering Dr. Machado Was smoking cessation discussed for >3mins.? @ -No Was critical care preformed (if so, how long)? @ -No Were there social determinants of health that impacted care today? How? (Homelessness, low income, unemployed, alcoholism, drug addiction, transportation, low edu. Level, literacy, decrease access to med. care, penitentiary, rehab)? @ -No Was there de-escalation of care discussed even if they declined (Discuss DNR or withdrawal of care, Hospice)? DNR status @ -No What co-morbidities impacted this encounter? (DM, HTN, Smoking, COPD, CAD, Cancer, CVA, ARF, Chemo, Hep., AIDS, mental health diagnosis, sleep apnea, morbid obesity)? @ -None Was patient admitted / discharged? Hospital course, mention meds given and route, prescriptions, significant lab abnormalities, going to OR and other pertinent info. @ -Patient reevaluated and does feel better with nitroglycerin. Patient updated on results and plan. Patient will be admitted. Interior orders written. Undiagnosed new problem with uncertain prognosis? @ -No Drug Therapy requiring intensive monitoring for toxicity (Heparin, Nitro, Insulin, Cardizem)? @ -No Were any procedures done? @ -No Diagnosis/symptom? @ -Chest pain Acute, or Chronic, or Acute on Chronic? @ -Acute Uncomplicated (without systemic symptoms) or Complicated (systemic symptoms)? @ -Complicated with nausea and vomiting Side effects of treatment? @ -No Exacerbation, Progression, or Severe Exacerbation? @ -No Poses a threat to life or bodily function? How? (Chest pain, [place], [place], pneumonia, PE, COPD, DKA, ARF, appy, cholecystitis, CVA, Diverticulitis, Homicidal, Suicida l, threat to staff... and all critical care pts) @ -Potential for cardiac dysfunction - Lab Data Result diagrams: 12/04/23 13:51 12/04/23 13:51 Lab Results 12/04/23 12/04/23 12/04/23 Range/Units 13:51 13:51 13:51 WBC 10.5 (3.8-10.6) k/uL RBC 4.64 (3.80-5.40) m/uL Hgb 14.2 (11.4-16.0) gm/dL Hct 43.5 (34.0-46.0) % MCV 93.7 (80.0-100.0) fL MCH 30.5 (25.0-35.0) pg MCHC 32.6 (31.0-37.0) g/dL RDW 12.4 (11.5-15.5) % Plt Count 250 (150-450) k/uL MPV 8.9 Neutrophils % 52 % Lymphocytes % 39 % Monocytes % 4 % Eosinophils % 1 % Basophils % 1 % Neutrophils # 5.4 (1.3-7.7) k/uL Lymphocytes # 4.2 (1.0-4.8) k/uL Monocytes # 0.4 (0-1.0) k/uL Eosinophils # 0.1 (0-0.7) k/uL Basophils # 0.1 (0-0.2) k/uL PT 10.5 (10.0-12.5) sec INR 0.9 (<1.2) APTT 23.7 (22.0-30.0) sec D-Dimer 0.34 (<0.60) mg/L FEU Sodium 134 L (137-145) mmol/L Potassium 3.2 L (3.5-5.1) mmol/L Chloride 102 (98-107) mmol/L Carbon Dioxide 17 L (22-30) mmol/L Anion Gap 15 mmol/L BUN 14 (7-17) mg/dL Creatinine 0.76 (0.52-1.04) mg/dL Est GFR (CKD-EPI)AfAm >90 (>60 ml/min/1.73 sqM) Est GFR (CKD-EPI)NonAf 87 (>60 ml/min/1.73 sqM) Glucose 128 H (74-99) mg/dL Calcium 9.5 (8.4-10.2) mg/dL Magnesium 2.0 (1.6-2.3) mg/dL Total Bilirubin 0.5 (0.2-1.3) mg/dL AST 27 (14-36) U/L ALT 17 (4-34) U/L Alkaline Phosphatase 95 (38-126) U/L Troponin I (0.000-0.034) ng/mL Total Protein 7.1 (6.3-8.2) g/dL Albumin 4.6 (3.5-5.0) g/dL Amylase 55 (30-110) U/L Lipase 95 (23-300) U/L 12/04/23 Range/Units 13:51 WBC (3.8-10.6) k/uL RBC (3.80-5.40) m/uL Hgb (11.4-16.0) gm/dL Hct (34.0-46.0) % MCV (80.0-100.0) fL MCH (25.0-35.0) pg MCHC (31.0-37.0) g/dL RDW (11.5-15.5) % Plt Count (150-450) k/uL MPV Neutrophils % % Lymphocytes % % Monocytes % % Eosinophils % % Basophils % % Neutrophils # (1.3-7.7) k/uL Lymphocytes # (1.0-4.8) k/uL Monocytes # (0-1.0) k/uL Eosinophils # (0-0.7) k/uL Basophils # (0-0.2) k/uL PT (10.0-12.5) sec INR (<1.2) APTT (22.0-30.0) sec D-Dimer (<0.60) mg/L FEU Sodium (137-145) mmol/L Potassium (3.5-5.1) mmol/L Chloride (98-107) mmol/L Carbon Dioxide (22-30) mmol/L Anion Gap mmol/L BUN (7-17) mg/dL Creatinine (0.52-1.04) mg/dL Est GFR (CKD-EPI)AfAm (>60 ml/min/1.73 sqM) Est GFR (CKD-EPI)NonAf (>60 ml/min/1.73 sqM) Glucose (74-99) mg/dL Calcium (8.4-10.2) mg/dL Magnesium (1.6-2.3) mg/dL Total Bilirubin (0.2-1.3) mg/dL AST (14-36) U/L ALT (4-34) U/L Alkaline Phosphatase (38-126) U/L Troponin I <0.012 (0.000-0.034) ng/mL Total Protein (6.3-8.2) g/dL Albumin (3.5-5.0) g/dL Amylase (30-110) U/L Lipase (23-300) U/L Disposition Clinical Impression: Chest pain Disposition: ADMITTED IP TO THIS HOSP Is patient prescribed a controlled substance at d/c from ED?: No Referrals: Faye Macahdo MD [Primary Care Provider] - 1-2 days Time of Disposition: 15:08
[2023-12-04] MEDS: ASPIRIN 81 MG PO STA (13:55)
[2023-12-04] MEDS: ONDANSETRON 4 MG/2 ML VIAL IVP STA (13:56)
[2023-12-04 13:57] LABS: Basophils # (A) 0.1 k/uL (0-0.2); Basophils % (A) 1 %; Eosinophils # (A) 0.1 k/uL (0-0.7); Eosinophils % (A) 1 %; HCT 43.5 % (34.0-46.0); HGB 14.2 gm/dL (11.4-16.0); Lymphocytes # (A) 4.2 k/uL (1.0-4.8); Lymphocytes % (A) 39 %; MCH 30.5 pg (25.0-35.0); MCHC 32.6 g/dL (31.0-37.0); MCV 93.7 fL (80.0-100.0); Mean Platelet Volume 8.9; Monocytes # (A) 0.4 k/uL (0-1.0); Monocytes % (A) 4 %; Neutrophils # (A) 5.4 k/uL (1.3-7.7); Neutrophils % (A) 52 %; Platelet Count 250 k/uL (150-450); RBC 4.64 m/uL (3.80-5.40); RDW 12.4 % (11.5-15.5); WBC 10.5 k/uL (3.8-10.6)
[2023-12-04] MEDS: FAMOTIDINE 20 MG/2 ML VIAL IV STA (13:57)
[2023-12-04] MEDS: NITROGLYCERIN SL TABS 0.4 MG TAB SUBLINGUAL STA ×3 (13:57→15:54)
[2023-12-04 14:16] LABS: ALT 17 U/L (4-34); AST 27 U/L (14-36); African American GFR (CKD) >90 (>60 ml/min/1.73 sqM); Albumin 4.6 g/dL (3.5-5.0); Alkaline Phosphatase 95 U/L (38-126); Amylase 55 U/L (30-110); Anion Gap 15 mmol/L; Blood Urea Nitrogen 14 mg/dL (7-17); Calcium 9.5 mg/dL (8.4-10.2); Carbon Dioxide 17 mmol/L (22-30); Chloride 102 mmol/L (98-107); Glucose 128 mg/dL (74-99); Lipase 95 U/L (23-300); Non-African American GFR(CKD) 87 (>60 ml/min/1.73 sqM); Potassium 3.2 mmol/L (3.5-5.1); Sodium 134 mmol/L (137-145); Total Bilirubin 0.5 mg/dL (0.2-1.3); Total Protein 7.1 g/dL (6.3-8.2)
[2023-12-04 14:17] LABS: INR 0.9 (<1.2); Partial Thromboplastin Time 23.7 sec (22.0-30.0); Prothrombin Time 10.5 sec (10.0-12.5)
--- NOTE | 2023-12-04 14:29 | XR ---
EXAMINATION TYPE: XR chest 2V DATE OF EXAM: 12/04/2023 COMPARISON: 03/22/17 HISTORY: Shortness of breath TECHNIQUE: Frontal and lateral views of the chest are obtained. FINDINGS: Scattered senescent parenchymal changes noted. Hyperinflation compatible with COPD. No evidence for infiltrate. No evidence for atelectasis. Heart size is stable. Mediastinal structures are stable and grossly unremarkable. No evidence for hilar prominence. Degenerative changes dorsal spine. IMPRESSION: 1. No evidence for acute pulmonary disease.
[2023-12-04] MEDS ORDERED: NITROGLYCERIN SL TABS 0.4 MG TAB SUBLINGUAL PRN (15:08)
[2023-12-04] MEDS ORDERED: Potassium Replacement Protocol 1 EACH MISC MISCELLANE PRN (17:02)
[2023-12-04] MEDS: POTASSIUM CHLORIDE ER 20 MEQ TAB.ER PO SCH (17:24)
[2023-12-04] MEDS: NITROGLYCERIN OINT 1 INCH/GM PACKET TOPICAL SCH (17:24)
--- NOTE | 2023-12-04 18:07 | P.HPIM ---
History of Present Illness H&P Date: 12/04/23 HISTORY OF PRESENT ILLNESS: 58-year-old [address] Machado's patient with past medical history of smoking, HHT, migraine, GERD and slightly with abnormal EKG who was seen in the office back earlier in the year her EKG showed Q waves in V1 V2 she had an arrangement to have a stress test which was done late August came back with no major abnormality. Patient has been doing well beside her smoking and migraine no major complaints she stated she is able to manage taking care of all her failure exercise, walk, do physical activity with no problem. Earlier today she noted her car with her somewhat tired try to take them to the shop to change them when she developed to have slight dizziness and lightheadedness with mild shortness of breath went to lay down and on sudden de veloped to have midsternal chest pain did not radiate to any area but the chest did not have any numbness in her hand on no palpitation she had slight nausea with no vomiting. Her symptoms lasted for over an hour ended up coming to the emergency department at [facility] where was seen and evaluated her CK with troponin came back negative, her electrolytes show slight hypokalemia with mild hyperglycemia, her EKG did not show any abnormality chest x-ray was normal. Patient was hospitalized for chest pain and angina had 1 inch of nitro after nitroglycerin sublingual manage symptom much better. REVIEW OF SYSTEMS: CONSTITUTIONAL: Well-developed no acute respiratory distress. EYES: No icterus sclerae, no conjunctivitis. EARS, NOSE, MOUTH, THROAT, and FACE: No sore throat, lymphadenopathy, carotid bruits or deformity. RESPIRATORY: Positive shortness of breath with mild chest discomfort no wheezes. CARDIOVASCULAR: Positive chest pain with mild PND and orthopnea. GASTROINTESTINAL: No Abd pain, Nausea or vomiting, no Diarrhea or constipation, No GI Bleed, no distention or masses. Mild indigestion. GENITOURINARY: Negative for Hematuria or UTI, no kidney stones. INTEGUMENT/BREAST: Negative for any muscular injury with mild osteoarthritis.. HEMATOLOGIC/LYMPHATIC: Negative for bleed or purpura. MUSCULOSKELTAL: Negative for Myalgia or arthralgia. Slight muscle discomfort. NEURLOGICAL: No LOC, Sz or syncope, blurred vision dizziness or abnormality.. BEHAVIORAL/PSYCH: Negative. ENDOCRINE: Negative. Social history: Patient smokes half pack a day for 40 years, does not drink alcohol, no illicit drug use. Family history: Her father is in his 81 had CAD post PCI and stent. Her mother is in her 79 multiple myeloma. Patient has 5 siblings one of her sister had A-fib. Also patient has 2 children her son had bicuspid aortic valve. PHYSICAL EXAMINATION: General Appearance: Alert, cooperative, no distress, appears stated age. Neck HEENT: Supple, no lymphadenopathy, no thyroid enlargement, no carotid bruits. Lungs: Decreased breath sound bilaterally with fine rhonchi no crackles or wheezes. Chest Wall: Decreased expansion with deep inspiration no tenderness and no deformity was found on exam, no costochondral pain or discomfort. Heart: Regular rate and rhythm, S1, S2 normal, no murmur, rub or gallop. Back: Symmetric, no curvature, ROM normal, no CVA tenderness. Abdomen: Soft, non-tender, bowel sounds active all four quadrants, no masses, no organomegaly. Extremities: Extremities normal, atraumatic, no cyanosis or edema. Pulses: 2+ and symmetric. Skin: Skin color, texture, tugor normal, no rashes or lesions. Neurologic: Alert oriented x3 cranial nerves II through XII intact, no motor deficit, no abnormal balance or gait. ASSESSMENT AND PLAN: _Atypical chest pain with no history of heart disease but slight risk factor for heart disease including chronic history of smoking along with family history and elevated cholesterol. Patient was hospitalized CK troponin x 3 will be done, repeat EKG, cardiology consultation and echocardiogram done. Reviewed stress test from 4 months ago looks pretty normal at the time. _Chronic history of smoking: Patient will start nicotine patch 14 mg daily. _History of hereditary hemorrhagic telangiectasia: No episode of any abnormality lately stable. _Chronic history of migraine: Patient is using Fioricet on as-needed basis. _Hyperlipidemia: Up to now has been on diet control only repeat lipid panel blood work if LDL is above 100 should be on statin. _Hyperglycemia: Continue diet control not on any medication currently. _Hypokalemia: She is not on any diuretics because at this point, post replacement therapy repeat CMP with blood work tomorrow with magnesium. _Lower back pain. T7 surgery in the past: Has been doing well. _History of liver cysts: Has been stable with no major abnormality been watched as an outpatient. _GI prophylaxis: Patient on Pepcid 20 mg daily. _DVT prophylaxis: Early mobilization knee-high IVONNE hose will be done. CODE STATUS: Full code. Admit patient to the observation Status for overnight stay. Past Medical History Additional Past Medical History / Comment(s): Hereditary hemorrhagic telangiectasia, migraines. per pt has mass in liver History of Any Multi-Drug Resistant Organisms: None Reported Past Surgical History: Section, Orthopedic Surgery, Tonsillectomy Additional Past Surgical History / Comment(s): c-sect x2, man-made disk C-7 inserted 03/20/2017, hemorrhoid surgery, D&C Past Anesthesia/Blood Transfusion Reactions: No Reported Reaction Past Psychological History: No Psychological Hx Reported Smoking Status: Current every day smoker Past Alcohol Use History: None Reported Past Drug Use History: None Reported Medications and Allergies Home Medications Medication Instructions Recorded Confirmed Type No Known Home Medications 08/31/21 12/04/23 History Allergies Allergy/AdvReac Type Severity Reaction Status Date / Time No Known Allergies Allergy Verified 12/04/23 15:08 Physical Exam Vitals: Vital Signs Temp Pulse Resp BP Pulse Ox 12/04/23 17:26 66 18 99 12/04/23 15:24 97.0 F L 64 16 109/72 98 12/04/23 14:45 73 18 123/66 96 12/04/23 13:33 98.5 F 90 28 H 131/78 99 Intake and Output 12/04/23 12/04/23 12/04/23 06:59 14:59 22:59 Other: Weight 60.328 kg Results CBC & Chem 7: 12/04/23 13:51 12/04/23 13:51 Labs: Abnormal Lab Results - Last 24 Hours (Table) 12/04/23 Range/Units 13:51 Sodium 134 L (137-145) mmol/L Potassium 3.2 L (3.5-5.1) mmol/L Carbon Dioxide 17 L (22-30) mmol/L Glucose 128 H (74-99) mg/dL
[2023-12-05 01:48] VITALS: TEMP 98.2
[2023-12-05 08:05] VITALS: BP 113/60; PULSE 62; RESP 16
[2023-12-05] MEDS ORDERED: ASPIRIN 325 MG TAB PO SCH (09:00)
[2023-12-05] MEDS: NICOTINE 14MG/24HR PATCH TRANSDERM SCH (09:17)
[2023-12-05] MEDS: ASPIRIN 81 MG PO SCH (09:17)
[2023-12-05 09:36] LABS: HGB 12.9 g/dL (12.0-15.0); MCH 30.7 pg (27.0-32.0); MCHC 33.1 g/dL (32.0-37.0); MCV 92.9 FL (80.0-97.0); Mean Platelet Volume 11.4 FL (9.5-12.2); NRBC Per 100 WBC 0 X 10*3/uL (0.00-0.01); Platelet Count 227 X 10*3/uL (140-440); RDW 12.8 % (11.5-14.5); WBC 7.82 X 10*3/uL (4.50-10.00)
[2023-12-05 09:51] LABS: ALT 11 U/L (8-44); AST 18 U/L (13-35); Albumin 4.1 g/dL (3.8-4.9); Albumin/Globulin Ratio 2.05 Ratio (1.60-3.17); Alkaline Phosphatase 77 U/L (41-126); BUN/Creat Ratio 17.75 Ratio (12.00-20.00); Blood Urea Nitrogen 14.2 mg/dL (9.0-27.0); Calcium 9.2 mg/dL (8.7-10.3); Carbon Dioxide 23.6 mmol/L (21.6-31.8); Chloride 106 mmol/L (96-109); Chol/HDL Ratio 2.89 Ratio; Glucose 95 mg/dL (70-110); Magnesium 2.2 mg/dL (1.5-2.4); Potassium 4.7 mmol/L (3.5-5.5); Sodium 140 mmol/L (135-145); Total Bilirubin 0.3 mg/dL (0.3-1.2); Total Protein 6.1 g/dL (6.2-8.2); VLDL Calculation 14.24 mg/dL (5.00-40.00)
--- NOTE | 2023-12-05 10:54 | P.DS ---
Providers Date of admission: 12/04/23 15:09 Attending physician: Arnold Trujillo Consults: 12/04/23 15:08 Consult Physician Urgent Consulting Provider: Jerzy Dickey Consult Reason/Comments: cp Do you want consulting provider notified?: Yes Primary care physician: Faye Machado [facility] Hospital Course: HISTORY OF PRESENT ILLNESS: 58-year-old [address] Machado's patient with past medical history of smoking, HHT, migraine, GERD and slightly with abnormal EKG who was seen in the office back earlier in the year her EKG showed Q waves in V1 V2 she had an arrangement to have a stress test which was done late August came back with no major abnormality. Patient has been doing well beside her smoking and migraine no major complaints she stated she is able to manage taking care of all her failure exercise, walk, do physical activity with no problem. Earlier today she noted her car with her somewhat tired try to take them to the shop to change them when she developed to have slight dizziness and lightheadedness with mild shortness of breath went to lay down and on sudden developed to have midsternal chest pain did not radiate to any area but the chest did not have any numbness in her hand on no palpitation she had slight nausea with no vomiting. Her symptoms lasted for over an hour ended up coming to the emergency department at [facility] where was seen and evaluated her CK with troponin came back negative, her electrolytes show slight hypokalemia with mild hyperglycemia, her EKG did not show any abnormality chest x-ray was normal. Patient was hospitalized for chest pain and angina had 1 inch of nitro after nitroglycerin sublingual manage symptom much better. 12/05/2023: Patient spent the night in the hospital, has been feeling good no further chest pain or angina, awaiting to see cardiology this morning, still doing an echocardiogram patient had stress test early no need to repeat it at this point unless there is more obvious reason which if does patient probably need to go for heart cath. Otherwise all lab looks good if her echocardiogram looks good and clear from cardiology standpoint patient will be able to go home. Echocardiogram was done while watching it with the master sonar technician, patient has good ejection fraction with no major problems with valvular heart disease but she has small atrial septal defect more like PFO. Evaluate clinically for what happened to this episode and none that she should probably talk to her PCP and butcher's assistant about whether need to close it or not. REVIEW OF SYSTEMS: CONSTITUTIONAL: Well-developed no acute respiratory distress. EYES: No icterus sclerae, no conjunctivitis. EARS, NOSE, MOUTH, THROAT, and FACE: No sore throat, lymphadenopathy, carotid bruits or deformity. RESPIRATORY: Positive shortness of breath with mild chest discomfort no wheezes. CARDIOVASCULAR: Positive chest pain with mild PND and orthopnea. GASTROINTESTINAL: No Abd pain, Nausea or vomiting, no Diarrhea or constipation, No GI Bleed, no distention or masses. Mild indigestion. GENITOURINARY: Negative for Hematuria or UTI, no kidney stones. INTEGUMENT/BREAST: Negative for any muscular injury with mild osteoarthritis.. HEMATOLOGIC/LYMPHATIC: Negative for bleed or purpura. MUSCULOSKELTAL: Negative for Myalgia or arthralgia. Slight muscle discomfort. NEURLOGICAL: No LOC, Sz or syncope, blurred vision dizziness or abnormality.. BEHAVIORAL/PSYCH: Negative. ENDOCRINE: Negative. PHYSICAL EXAMINATION: General Appearance: Alert, cooperative, no distress, appears stated age. Neck HEENT: Supple, no lymphadenopathy, no thyroid enlargement, no carotid bruits. Lungs: Decreased breath sound bilaterally with fine rhonchi no crackles or wheezes. Chest Wall: Decreased expansion with deep inspiration no tenderness and no deformity was found on exam, no costochondral pain or discomfort. Heart: Regular rate and rhythm, S1, S2 normal, no murmur, rub or gallop. Back: Symmetric, no curvature, ROM normal, no CVA tenderness. Abdomen: Soft, non-tender, bowel sounds active all four quadrants, no masses, no organomegaly. Extremities: Extremities normal, atraumatic, no cyanosis or edema. Pulses: 2+ and symmetric. Skin: Skin color, texture, tugor normal, no rashes or lesions. Neurologic: Alert oriented x3 cranial nerves II through XII intact, no motor deficit, no abnormal balance or gait. ASSESSMENT AND PLAN: _Atypical chest pain: Not angina type, or CK troponin x 3 was negative echocardiogram does not show any wall motion abnormality. She had a stress test early no need to repeat anymore. _Atrial septal defect and possibly small PFO: Patient be seen cardiology as an outpatient talked about possibility and need for any intervention for it. _Chronic history of smoking: Patient will start nicotine patch 14 mg daily. _History of hereditary hemorrhagic telangiectasia: No episode of any abnormality lately stable. _Chronic history of migraine: Patient is using Fioricet on as-needed basis. _Hyperlipidemia: Up to now has been on diet control only repeat lipid panel blood work if LDL is above 100 should be on statin. _Hyperglycemia: Continue diet control not on any medication currently. _Hypokalemia: She is not on any diuretics because at this point, post replacement therapy repeat CMP with blood work tomorrow with magnesium. _Lower back pain. T7 surgery in the past: Has been doing well. _History of liver cysts: Has been stable with no major abnormality been watched as an outpatient. Discharge planning: Patient is doing very well will be able to go home today. Hospital course: Patient was hospitalized for atypical chest pain serial troponin was negative, EKG did not show any change, review her stress test from August that was completely normal. Through the night patient did not have any further chest pain and Nitropaste was taking out she had an echocardiogram and seen cardiology her echo showed atrial septal defect very small with possible small PFO patient be seen cardiology for as an outpatient to talk about potential closure if needed. Otherwise patient is very stable to go home today. Plan - Discharge Summary New Discharge Prescriptions: New Aspirin 81 mg PO DAILY tab Nicotine 14Mg/24Hr Patch [Habitrol] 1 patch TRANSDERM DAILY #30 patch Atorvastatin [Lipitor] 20 mg PO HS #30 tab Discharge Medication List Aspirin 81 mg PO DAILY tab 12/05/23 [Rx] Atorvastatin [Lipitor] 20 mg PO HS #30 tab 12/05/23 [Rx] Nicotine 14Mg/24Hr Patch [Habitrol] 1 patch TRANSDERM DAILY #30 patch 12/05/23 [Rx] Follow up Appointment(s)/Referral(s): Faye Machado MD [Primary Care Provider] - 1-2 days Jerzy Dickey MD [STAFF PHYSICIAN] - 1 Week
--- NOTE | 2023-12-05 12:01 | P.CRDCN ---
History of Present Illness Consult date: 12/05/23 Consult reason: chest pain History of present illness: The patient is a 58-year-old female with no significant past medical history, who presented to the emergency room with new onset of chest discomfort. The patient states yesterday she developed dizziness and lightheadedness. She felt as though she may be dehydrated, therefore she consumed more fluids. When her symptoms did not improve, she ate assuming that it may be low blood sugar. Her symptoms also did not improve, therefore she went to lie down when she developed heaviness in her chest. She states she felt like she had difficulty breathing at that time. She was started on a nitroglycerin patch in the emergency room and her chest discomfort resolved. DIAGNOSTICS: EKG shows sinus mechanism without ST or T wave abnormalities Chest x-ray shows no acute cardiopulmonary process Exercise stress echocardiogram in August 2023 shows no evidence of ischemia or stress-induced arrhythmia Lab data: WBC 7.8, hemoglobin 12.9, hematocrit 39.0, platelet 227, sodium 140, potassium 4.7, BUN 14.2, creatinine 0.8, troponins negative x 3, triglycerides 71, LDL 114, HDL 67 REVIEW OF SYSTEMS: No fever or chills. No cough or expectoration. No diaphoresis. Patient denies headache, dizziness, blurred vision, double vision. Patient denies any stomach discomfort. No nausea, vomiting. No hematochezia. No hematemesis. Denies any black stools or blood in his stools. Denies dysuria or hematuria. No muscle weakness or numbness. No current chest pain or chest pressure. No difficulty breathing PHYSICAL EXAMINATION: This is a 58-year-old female in no apparent distress at the time of my examination. HEENT: Head is atraumatic, normocephalic. Pupils are equal, round. There is no jugular venous distention. No carotid bruit is heard. CHEST EXAMINATION: Lungs are clear to auscultation. No chest wall tenderness is noted on palpation or with deep breathing. HEART EXAMINATION: Heart regular rate and rhythm. S1, S2 heard. No murmurs, gallops or rub. ABDOMEN: Soft, nontender. Bowel sounds are heard. No organomegaly noted. EXTREMITIES: 2+ peripheral pulses with no evidence of peripheral edema and no calf tenderness noted. NEUROLOGIC EXAMINATION: Patient is awake, alert and oriented x3. FINAL ASSESSMENT AND PLAN: Chest discomfort Current smoker Hypokalemia PLAN: Check fasting lipid profile Start atorvastatin 20 mg Patient ambulated the halls and if there is no recurrence of chest pain she may be discharged from the cardiac standpoint I am dictating on behalf of Dr Shola Ventura's history/physical and assessment/plan. Past Medical History Additional Past Medical History / Comment(s): Hereditary hemorrhagic telangiectasia, migraines. per pt has mass in liver History of Any Multi-Drug Resistant Organisms: None Reported Past Surgical History: Section, Orthopedic Surgery, Tonsillectomy Additional Past Surgical History / Comment(s): c-sect x2, man-made disk C-7 inserted 03/20/2017, hemorrhoid surgery, D&C, tubes in ears, right wrist surgery to remove cyst/mass Past Anesthesia/Blood Transfusion Reactions: No Reported Reaction Past Psychological History: No Psychological Hx Reported Smoking Status: Current every day smoker Past Alcohol Use History: None Reported Additional Past Alcohol Use History / Comment(s): smokes 1 ppd Past Drug Use History: None Reported Medications and Allergies Home Medications Medication Instructions Recorded Confirmed Type Aspirin 81 mg PO DAILY tab 12/05/23 Rx Atorvastatin [Lipitor] 20 mg PO HS #30 tab 12/05/23 Rx Nicotine 14Mg/24Hr Patch [Habitrol] 1 patch TRANSDERM DAILY #30 patch 12/05/23 Rx Allergies Allergy/AdvReac Type Severity Reaction Status Date / Time No Known Allergies Allergy Verified 12/04/23 15:08 Physical Exam Vitals: Vital Signs Temp Pulse Pulse Resp BP BP Pulse Ox 12/05/23 07:13 98.2 F 62 16 113/60 97 12/05/23 00:56 98.2 F 59 L 17 97/61 96 12/04/23 20:13 98.4 F 70 18 102/63 97 12/04/23 17:26 66 18 99 12/04/23 15:24 97.0 F L 64 16 109/72 98 12/04/23 14:45 73 18 123/66 96 12/04/23 13:33 98.5 F 90 28 H 131/78 99 Intake and Output 12/04/23 12/05/23 12/05/23 22:59 06:59 14:59 Other: Voiding Method Toilet # Voids 1 Weight 60.328 kg Results 12/05/23 06:37 12/05/23 06:37 Cardiac Enzymes 12/04/23 12/04/23 12/04/23 Range/Units 13:51 13:51 15:30 AST 27 (14-36) U/L Troponin I <0.012 <0.012 (0.000-0.034) ng/mL 12/04/23 Range/Units 18:17 AST (14-36) U/L Troponin I <0.012 (0.000-0.034) ng/mL Coagulation 12/04/23 Range/Units 13:51 PT 10.5 (10.0-12.5) sec APTT 23.7 (22.0-30.0) sec CBC 12/04/23 Range/Units 13:51 WBC 10.5 (3.8-10.6) k/uL RBC 4.64 (3.80-5.40) m/uL Hgb 14.2 (11.4-16.0) gm/dL Hct 43.5 (34.0-46.0) % Plt Count 250 (150-450) k/uL Comprehensive Metabolic Panel 12/04/23 Range/Units 13:51 Sodium 134 L (137-145) mmol/L Potassium 3.2 L (3.5-5.1) mmol/L Chloride 102 (98-107) mmol/L Carbon Dioxide 17 L (22-30) mmol/L BUN 14 (7-17) mg/dL Creatinine 0.76 (0.52-1.04) mg/dL Glucose 128 H (74-99) mg/dL Calcium 9.5 (8.4-10.2) mg/dL AST 27 (14-36) U/L ALT 17 (4-34) U/L Alkaline Phosphatase 95 (38-126) U/L Total Protein 7.1 (6.3-8.2) g/dL Albumin 4.6 (3.5-5.0) g/dL Current Medications Generic Name Dose Route Start Last Admin Trade Name Freq PRN Reason Stop Dose Admin Aspirin 325 mg 12/05/23 09:00 Aspirin 325 Mg Tab PO DAILY KELLEY Miscellaneous Information 1 each 12/04/23 17:02 Potassium Replacement Protocol 1 Each Misc MISCELLANE DAILY PRN Per Protocol Protocol Nicotine 1 patch 12/05/23 09:00 Nicotine 14mg/24hr Patch TRANSDERM DAILY KELLEY Nitroglycerin 0.4 mg 12/04/23 15:08 Nitroglycerin Sl Tabs 0.4 Mg Tab SUBLINGUAL Q5M PRN Chest Pain Nitroglycerin 1 inch 12/04/23 18:00 12/05/23 04:54 Nitroglycerin Oint 1 Inch/Gm Packet TOPICAL Not Given Q6HR KELLEY Intake and Output 12/04/23 12/05/23 12/05/23 22:59 06:59 14:59 Other: Voiding Method Toilet # Voids 1 Weight 60.328 kg 12/04/23 13:51 12/04/23 13:51
--- NOTE | 2023-12-05 13:50 | CA ---
Transthoracic Echo Report Name: Kenya Woody Age: 58 Gender: F : 1965 Exam Date: 12/05/2023 10:29 Exam Location: [facility] Ht (in): 68 Wt (lb): 133 Ordering Physician: Arnold Trujillo MD Attending/Referring Phys: Body Artist Angeli Hinton RDCS Procedure CPT: Indications: lvfunction Cardiac Hx: Technical Quality: Fair Contrast 1: Agitated Saline Total Dose (mL): 20 Contrast 2: Total Dose (mL): MEASUREMENTS (Male / Female) Normal Values 2D ECHO LV Diastolic Diameter PLAX 4.1 cm 4.2 - 5.9 / 3.9 - 5.3 cm LV Systolic Diameter PLAX 2.9 cm IVS Diastolic Thickness 1.0 cm 0.6 - 1.0 / 0.6 - 0.9 cm LVPW Diastolic Thickness 1.0 cm 0.6 - 1.0 / 0.6 - 0.9 cm LV Relative Wall Thickness 0.5 RV Internal Dim ED PLAX 2.6 cm LA Volume 61.2 cm??? 18 - 58 / 22 - 52 cm??? LA Volume Index 36.1 cm???/m??? 16 - 28 cm???/m??? M-MODE Aortic Root Diameter MM 3.1 cm LA Systolic Diameter MM 2.7 cm LA Ao Ratio MM 0.9 AV Cusp Separation MM 1.6 cm DOPPLER AV Peak Velocity 152.6 cm/s AV Peak Gradient 9.3 mmHg AV Mean Velocity 88.9 cm/s AV Mean Gradient 3.8 mmHg AV Velocity Time Integral 31.5 cm LVOT Peak Velocity 103.9 cm/s LVOT Peak Gradient 4.3 mmHg LVOT Velocity Time Integral 23.8 cm MV Area PHT 2.3 cm??? Mitral E Point Velocity 70.6 cm/s Mitral A Point Velocity 96.1 cm/s Mitral E to A Ratio 0.7 MV Deceleration Time 323.0 ms MV E' Velocity 9.4 cm/s Mitral E to MV E' Ratio 7.5 TR Peak Velocity 258.1 cm/s TR Peak Gradient 26.7 mmHg Right Ventricular Systolic Press 31.5 mmHg FINDINGS Left Ventricle Mild concentric left ventricular hypertrophy. Left ventricular cavity size normal. Normal left ventricular systolic function with no obvious regional wall motion abnormalities. Left ventricular ejection fraction is estimated at 55-60 %. Right Ventricle RV normal Right Atrium Mild right atrial dilatation. Left Atrium Mildly increased left atrial volume. Interatrial septal aneurysm. Mitral Valve Structurally normal mitral valve. Mild mitral regurgitation. Aortic Valve Trileaflet aortic valve. No aortic valve stenosis or regurgitation. Tricuspid Valve Structurally normal tricuspid valve. Mild tricuspid regurgitation. Pulmonic Valve Structurally normal pulmonic valve. Pericardium No pericardial effusion. Aorta Normal size aortic root and proximal ascending aorta. CONCLUSIONS Preserved LV systolic function There is NO evidence for a right to left shunt on bubble study either in the four-chamber view of the subcostal view Previewed by: Dr. Shola Ventura MD (Electronically Signed) Final Date: 05 December 2023 13:49
[2023-12-05] MEDS ORDERED: ATORVASTATIN 10 MG TAB PO SCH (21:00)
[2023-12-05] MEDS ORDERED: ATORVASTATIN 20 MG TAB PO SCH (21:00)
== END 2023-12-05 13:30 | disposition home or self-care (01) ==
LOC: EC 13:31 → 5NMEDONC 15:09 → 4SSUR 17:10
PROVIDERS: ADMIT Internal Medicine Geriatric Medicine; ATTEND Internal Medicine Geriatric Medicine
DX: R07.89 Other chest pain (principal); Q21.10 Atrial septal defect, unspecified; E87.6 Hypokalemia; R73.9 Hyperglycemia, unspecified; E78.00 Pure hypercholesterolemia, unspecified; R11.2 Nausea with vomiting, unspecified; G43.909 Migraine, unspecified, not intractable, without status migrainosus; K21.9 Gastro-esophageal reflux disease without esophagitis; I78.0 Hereditary hemorrhagic telangiectasia; K76.89 Other specified diseases of liver; M54.50 Low back pain, unspecified; R42 Dizziness and giddiness; F17.210 Nicotine dependence, cigarettes, uncomplicated; Z82.49 Family history of ischemic heart disease and other diseases of the circulatory system
CPT/HCPCS: 96374; 96375; 99285; 36415; 93005; 93306; 85379; 80061; 80053 ×2; 82150; 83690; 83735 ×2; 84484; 85025; 85027; 85610; 85730; 71046; G0378 ×3; S4990; J2405; J3490

== ENCOUNTER → 2024-01-19 | Outpatient (CLI) | payer BC ==
--- NOTE | 2024-02-17 14:38 | MR ---
EXAMINATION TYPE: MR foot RT wo/w con DATE OF EXAM: 01/19/2024 COMPARISON: No radiographic correlation available HISTORY: 58 year-old female M86.171, Right foot pain, swelling, redness attention great toe x1 year, Toe nail removed, had antibiotics on/off one year no change, No trauma Technique: Multiplanar, multisequence images of the right foot were obtained before and after adminis tration of 6 mL intravenous Gadavist gadolinium contrast. FINDINGS: There is soft tissue and underlying marrow edema involving the first distal phalanx. The only provide d T1 sequences in the axial plane. This does demonstrate diminished marrow signal involving the shaft of the distal phalanx. Associated mild postcontrast enhancement on the postcontrast T1 fat saturated image. Some possible fluid overlying the dorsal aspect of the distal phalangeal shaft in the expected region of the toenail measuring 1.3 cm wide by 2 mm thick by 4 mm AP. No convincing rim enhancement to rhea rly indicate an abscess here. Moderate degenerative change first MTP joint. No additional suspicious bone marrow placement. Scattered mild muscular edema. If there is a history of diabetes, findings can be seen with neuropath ic change. 9 mm cyst along the dorsal lateral midfoot suggests a small ganglion cyst. IMPRESSION: 1. Limited assessment as only a single conventional T1 sequence is provided. This sequence does sugge st some marrow replacement of the first distal phalangeal shaft with corresponding bone marrow edema. Findings can be seen with osteomyelitis. Consider radiographic correlation. 2. Possible small locule of fluid located in the great toe nail bed just dorsal to this region and me asuring 1.3 x 0.2 x 0.4 cm. No well-defined rim enhancement to clearly indicate an abscess here.
== END | disposition home or self-care (01) ==
LOC: RADMRIMAIN 18:26
PROVIDERS: ATTEND Podiatrist Primary Podiatric Medicine
DX: M86.171 Other acute osteomyelitis, right ankle and foot (principal)
CPT/HCPCS: 73720; A9585

== ENCOUNTER → 2024-08-05 | Outpatient (CLI) | payer BC ==
--- NOTE | 2024-08-05 20:28 | CTL ---
EXAMINATION TYPE: CT Low Dose Lung DATE OF EXAM: 08/05/2024 7:07 PM COMPARISON: 07/14/2023. CLINICAL INDICATION: Female, 59 years old with history of Z12.2 ENCNTR SCREEN FO F17.210 NICOTINE DEP ENDENCE; Yearly lung screening for nicotine dependence of 1ppd x40 years. Current smoker, Hx of COPD. , history of tobacco use. TECHNIQUE: Multiple axial non-contrast scans were obtained from approximately the lung apices through the upper abdomen. Coronal and sagittal reformatted images were obtained. Low dose technique was uti lized. MIP were created on a separate workstation and submitted for review. CT DLP: 55.2 mGycm, Automated exposure control for dose reduction was used. CT Contrast: Contrast used: None Oral contrast used: None FINDINGS: Lack of intravenous contrast and low dose technique limits the evaluation of the vascular and soft ti ssue structures. LUNGS: No evidence of pulmonary fibrosis. No evidence of focal consolidation, pneumothorax or pleural effusion. Centrilobular emphysema changes. Nodules: RUL: None. RML: None. RLL: None. ANUSHA: Stable partially calcified left upper lobe 7 mm.. LLL: None. AIRWAY: Patent and unremarkable. HEART: Size within normal limits. MEDIASTINUM: No gross evidence of adenopathy. Partially calcified left pulmonary hilum lymph nodes. VASCULATURE: No aortic aneurysm. MUSCULOSKELETAL: No acute osseous abnormalities SOFT TISSUES/LYMPH NODES: Unremarkable. LOWER NECK: No significant findings. UPPER ABDOMEN: No significant findings. IMPRESSION: 1. No clinically significant pulmonary nodules. 2. Sequela of granulomatous disease. 3. Mild to moderate emphysema changes. CT LUNG RAD AND CT CHEST RECOMMENDATION: Lung-Rad 2 Benign Appearance or Behavior: Continue annual sc reening with LDCT in 12 months. S Modifier (other clinically significant findings): None Recommend smoking cessation (if current smoker), or continuation of smoking cessation (if prior smoke r). Annual screening for lung cancer with low-dose computed tomography is recommended in adults ages 55 to 77 years who have a 30 pack-year smoking history and currently smoke or have quit within the pa st 15 years. Screening should be discontinued once a person has not smoked for 15 years or develops a health problem that substantially limits life expectancy or the ability or willingness to have curat yoly lung surgery. Lung rads 2021 [email or web address] [facility], , 08/05/2024 8:25 PM
== END | disposition home or self-care (01) ==
LOC: RADCTMAIN 18:41
PROVIDERS: ATTEND Family Medicine
DX: Z12.2 Encounter for screening for malignant neoplasm of respiratory organs (principal); J43.9 Emphysema, unspecified; F17.210 Nicotine dependence, cigarettes, uncomplicated; J84.10 Pulmonary fibrosis, unspecified; Z87.09 Personal history of other diseases of the respiratory system
CPT/HCPCS: 71271

== ENCOUNTER → 2024-09-13 | Outpatient (CLI) | payer BC ==
--- NOTE | 2024-09-13 14:03 | MM ---
Reason for Exam: Screening (asymptomatic). Last mammogram was performed 1 year(s) and 1 month(s) ago. Patient History: Menarche at age 13. First Full-Term at age 32. Late child-bearing (after 30). Postmenopausal. Hormonal Contraceptives for 12 years from age 18 until age 30. Paternal grandmother had breast cancer, age 40. Paternal aunt had breast cancer. Risk Values: Bhavani 5 year model risk: 1.9%. NCI Lifetime model risk: 10.2%. Prior Study Comparison: 05/23/2021 Left Diagnostic Mammogram, [facility]. 06/02/2022 Bilateral MG 3D screening mammo w/cad, [facility]. 08/11/2023 Bilateral MG 3D screening mammo w/cad, [facility]. Tissue Density: The breasts are heterogeneously dense, which may obscure small masses. Findings: Analyzed By CAD. There is no suspicious group of microcalcifications or new suspicious mass in either breast. Overall Assessment: Negative, BI-RAD 1 Management: Screening Mammogram of both breasts in 1 year. Patient should continue monthly self-breast exams. A clinical breast exam by your physician is recommended on an annual basis. This exam should not preclude additional follow-up of suspicious palpable abnormalities. Note on Bhavani scores and lifetime risk: 1. A Bhavani score greater than 3% is considered moderate risk. If this is the case, consider specialist referral to assess eligibility for a risk reducing agent. 2. If overall lifetime risk for the development of breast cancer is 20% or higher, the patient may qualify for future screening with alternating mammogram and breast MRI. [facility], , 09/13/2024 2:00 PM. Electronically signed and approved by: Yissel Moses M.D. Radiologist
== END | disposition home or self-care (01) ==
LOC: RADMAMWWP 10:49
PROVIDERS: ATTEND Family Medicine
DX: Z12.31 Encounter for screening mammogram for malignant neoplasm of breast (principal); Z78.0 Asymptomatic menopausal state; Z80.3 Family history of malignant neoplasm of breast; R92.333 Mammographic heterogeneous density, bilateral breasts
CPT/HCPCS: 77063; 77067